=== PATIENT | female | born 1940 | race Caucasian/White ===

== ENCOUNTER → 2024-06-26 | Outpatient (CLI) | payer MEDICARE ==
[~2024-06-26] MED LIST: ATOR20 PO; Aspir 8181 MG PO; CLOB.05TC TOP; CLON.5 PO; CYCL10 PO; ERGO400 PO; HYDACE5; HYDACE5 PO; HYOS.125 SL; IBUP600 PO; LAVAP17G PO; METF500 PO; METO50 PO; Macrobid 100 M100 MG PO; NAPR500; Norco 5-325 Ta1 EACH PO; OXYACE5T PO; Pyridium100 MG PO; RANI150 PO; SULTRIDS PO; TRAM50 PO
[2024-06-26 11:58] LABS: BASOPHILS ABSOLUTE AUTO 0.03 K/mm3 (0.00-0.23); BASOPHILS PERCENT AUTO 0 % (0-2); EOSINOPHILS ABSOLUTE AUTO 0.05 K/mm3 (0.00-0.68); EOSINOPHILS PERCENT AUTO 1 % (0-6); Hematocrit 32.6 % (33.0-51.0); Hemoglobin 10.1 g/dL (11.5-16.0); IMMATURE GRAN PERCENT AUTO 1 % (0-1); LYMPHOCYTES ABSOLUTE AUTO 0.78 K/mm3 (0.84-5.20); LYMPHOCYTES PERCENT AUTO 8 % (21-46); MONOCYTES ABSOLUTE AUTO 0.67 K/mm3 (0.16-1.47); MONOCYTES PERCENT AUTO 7 % (4-13); Mean Corpuscular HGB 26.6 pg (26.0-34.0); Mean Corpuscular Volume 86 fL (80-100); Mean Platelet Volume 9.4 fL (9.1-12.4); NEUTROPHILS ABSOLUTE AUTO 7.84 K/mm3 (1.96-9.15); NEUTROPHILS PERCENT AUTO 83 % (41-73); Platelet Count 542 K/mm3 (150-400); RDW Coefficient Variation 18.4 % (11.7-14.2); RDW Standard Deviation 55.1 fL (35.1-46.3); White Blood Cell Count 9.47 K/mm3 (4.00-11.30)
[2024-06-26 12:19] LABS: Albumin, Blood 2.4 g/dL (3.4-5.0); Albumin/Globulin Ratio 0.5 (0.8-1.8); Bilirubin, Total 0.6 mg/dL (0.1-1.0); Bun/Creatinine Ratio 23.1 (12.0-20.0); Calcium, Blood 8.7 mg/dL (8.5-10.1); Creatinine, Blood 1.43 mg/dL (0.40-1.00); Globulin, Blood 4.7 g/dL (2.2-4.0); Potassium, Blood 5.6 mmol/L (3.5-5.5); Total Protein, Blood 7.1 g/dL (6.4-8.2)
== END | disposition home or self-care (01) ==
LOC: LAB SHORT 11:54 → LAB 11:54
PROVIDERS: Physician Assistant
DX: R10.9 Unspecified abdominal pain (principal)
CPT/HCPCS: 80053; 85025

== ENCOUNTER 2024-06-27 11:38 | Inpatient (IN) | payer MEDICARE ==
[~2024-06-27] VITALS: Ht 154.9 cm; Wt 60.0 kg
[~2024-06-27 11:38] MED LIST changes: -ATOR20 PO; -ERGO400 PO; -METF500 PO; -Norco 5-325 Ta1 EACH PO
[2024-06-27 13:20] LABS: Albumin, Blood 2.4 g/dL (3.4-5.0); Albumin/Globulin Ratio 0.6 (0.8-1.8); Bilirubin, Direct 0.4 mg/dL (0.0-0.3); Bilirubin, Indirect 0.3 mg/dL (0.1-0.7); Bilirubin, Total 0.7 mg/dL (0.1-1.0); Bun/Creatinine Ratio 28.8 (12.0-20.0); Calcium, Blood 8.5 mg/dL (8.5-10.1); Creatinine, Blood 1.18 mg/dL (0.40-1.00); Globulin, Blood 4.1 g/dL (2.2-4.0); Potassium, Blood 5.9 mmol/L (3.5-5.5); Total Protein, Blood 6.5 g/dL (6.4-8.2)
[2024-06-27] MEDS ORDERED: Ondansetron HCl 2 MG / ML 2ML Vial IV ONE (18:55)
[2024-06-27] MEDS ORDERED: Morphine Sulfate 4 MG/1 ML Injection IV ONE (18:55)
[2024-06-27] MEDS ORDERED: NS 1,000 ML IV SCH (19:20)
[2024-06-27 20:59] LABS: Bun/Creatinine Ratio 28.6 (12.0-20.0); Calcium, Blood 8.1 mg/dL (8.5-10.1); Creatinine, Blood 1.19 mg/dL (0.40-1.00); Potassium, Blood 5.7 mmol/L (3.5-5.5)
[2024-06-27] MEDS ORDERED: Sodium Zirconium Cyclosilicate 10 GM Packet PO ONE (21:35)
[2024-06-27 22:25] LABS: BASOPHILS ABSOLUTE AUTO 0.03 K/mm3 (0.00-0.23); BASOPHILS PERCENT AUTO 0 % (0-2); EOSINOPHILS ABSOLUTE AUTO 0.05 K/mm3 (0.00-0.68); EOSINOPHILS PERCENT AUTO 1 % (0-6); Hematocrit 28.1 % (33.0-51.0); Hemoglobin 8.6 g/dL (11.5-16.0); IMMATURE GRAN ABSOLUTE AUTO 0.13 K/mm3 (0.00-0.10); IMMATURE GRAN PERCENT AUTO 2 % (0-1); LYMPHOCYTES PERCENT AUTO 9 % (21-46); MONOCYTES ABSOLUTE AUTO 0.75 K/mm3 (0.16-1.47); MONOCYTES PERCENT AUTO 10 % (4-13); Mean Corpuscular HGB 27.3 pg (26.0-34.0); Mean Corpuscular HGB Conc 30.6 g/dL (31.5-36.5); Mean Corpuscular Volume 89 fL (80-100); Mean Platelet Volume 9.2 fL (9.1-12.4); NEUTROPHILS ABSOLUTE AUTO 6.23 K/mm3 (1.96-9.15); NEUTROPHILS PERCENT AUTO 79 % (41-73); NRBC ABSOLUTE 0.02 K/mm3 (0.00-0.02); NRBC Auto 0.3 /100 WBC (0.0-0.2); Platelet Count 423 K/mm3 (150-400); RDW Coefficient Variation 18.7 % (11.7-14.2); RDW Standard Deviation 58.4 fL (35.1-46.3); Red Blood Cell Count 3.15 M/mm3 (3.80-5.20); White Blood Cell Count 7.89 K/mm3 (4.00-11.30)
[2024-06-28] MEDS ORDERED: Ondansetron HCl 2 MG / ML 2ML Vial IV PRN (00:10)
[2024-06-28] MEDS ORDERED: NS 1,000 ML IV SCH ×2 (00:10→12:55)
[2024-06-28] MEDS ORDERED: FentaNYL Citrate 50 MCG/ML 2 ML Injection IV PRN (00:10)
[2024-06-28] MEDS ORDERED: FLU VACC TS2024-25(6MOS UP)/PF 45 MCG/0.5 ML SYRINGE IM SCH (00:10)
[2024-06-28] MEDS ORDERED: CALCIUM GLUC IN NACL, ISO-OSM 50 ML IV ONE (00:20)
[2024-06-28 02:21] LABS: International Normalized Ratio 1.07; Prothrombin Time Results 11.4 Sec (9.7-11.5)
[2024-06-28 06:35] LABS: BASOPHILS ABSOLUTE AUTO 0.02 K/mm3 (0.00-0.23); BASOPHILS PERCENT AUTO 0 % (0-2); EOSINOPHILS ABSOLUTE AUTO 0.07 K/mm3 (0.00-0.68); EOSINOPHILS PERCENT AUTO 1 % (0-6); Hematocrit 27.3 % (33.0-51.0); Hemoglobin 8.4 g/dL (11.5-16.0); IMMATURE GRAN ABSOLUTE AUTO 0.14 K/mm3 (0.00-0.10); IMMATURE GRAN PERCENT AUTO 2 % (0-1); LYMPHOCYTES PERCENT AUTO 9 % (21-46); MONOCYTES ABSOLUTE AUTO 0.75 K/mm3 (0.16-1.47); MONOCYTES PERCENT AUTO 9 % (4-13); Mean Corpuscular HGB 27.5 pg (26.0-34.0); Mean Corpuscular HGB Conc 30.8 g/dL (31.5-36.5); Mean Corpuscular Volume 89 fL (80-100); Mean Platelet Volume 9.8 fL (9.1-12.4); NEUTROPHILS ABSOLUTE AUTO 6.55 K/mm3 (1.96-9.15); NEUTROPHILS PERCENT AUTO 80 % (41-73); Platelet Count 422 K/mm3 (150-400); RDW Coefficient Variation 18.7 % (11.7-14.2); RDW Standard Deviation 59.9 fL (35.1-46.3); Red Blood Cell Count 3.06 M/mm3 (3.80-5.20); White Blood Cell Count 8.23 K/mm3 (4.00-11.30)
[2024-06-28 08:31] LABS: Albumin, Blood 2.1 g/dL (3.4-5.0); Albumin/Globulin Ratio 0.5 (0.8-1.8); Bilirubin, Total 0.7 mg/dL (0.1-1.0); Bun/Creatinine Ratio 26.2 (12.0-20.0); Calcium, Blood 8.2 mg/dL (8.5-10.1); Creatinine, Blood 1.07 mg/dL (0.40-1.00); Globulin, Blood 3.9 g/dL (2.2-4.0); Potassium, Blood 5.8 mmol/L (3.5-5.5)
[2024-06-28] MEDS ORDERED: Metoprolol Tartrate 25 MG Tab PO SCH (09:00)
--- NOTE | 2024-06-28 10:46 | NUR ---
CHART REVIEW FOR ANTICIPATED ASSUMPTION OF CARE.
--- NOTE | 2024-06-28 11:55 | NUR ---
MEDS: METOPROLOL BID METFORMIN BID VIT D QAM CLONAZEPAM QHS ATORVASTATIN QHS
--- NOTE | 2024-06-28 12:46 | NUR ---
PT WITH C/O SOB. TELE READING SINUS @ 93 c PVCs. PATIENT VERY ANXIOUS AND MOANING. CALL TO DR HARPER: OKAY TO EAT AND WILL WORK ON OBTAINING MEDICAL Hx.
[2024-06-28] MEDS ORDERED: ClonazePAM 0.5 MG Tab PO PRN (12:55)
[2024-06-28] MEDS ORDERED: Sodium Zirconium Cyclosilicate 10 GM Packet PO ONE ×2 (13:00→15:40)
[2024-06-28 14:55] LABS: Hematocrit 31.3 % (33.0-51.0); Hemoglobin 9.7 g/dL (11.5-16.0)
[2024-06-28 15:02] LABS: Source, Urine Clean Catch
[2024-06-28 15:18] LABS: Appearance, Urine Hazy (Clear); Bilirubin, Urine Neg (Neg); Blood, Urine Neg (Neg); Color, Urine Yellow (P-Yellow); Glucose Qualitative, Urine Neg (Neg); Ketones, Urine 2+ (Neg); Leukocyte Esterase, Urine Neg (Neg); Nitrite, Urine Neg (Neg); Protein, Urine 2+ (Neg); Specific Gravity, Urine 1.025 (1.003-1.022); Urobilinogen, Urine 1+ (Normal)
--- NOTE | 2024-06-28 15:38 | NUR ---
LOKELMA NOT ADMINISTERED PATIENT WAS NPO AT THE TIME. REORDERING TO BE ABLE TO PULL FROM [facility].
[2024-06-28 15:39] LABS: Amorphous Mod (0-Heavy); Bacteria Mod /hpf; Mucus Light (0-Heavy); Red Blood Cells, Urine 0-2 /hpf (0-2); Squamous Epithelial Cells Rare /hpf (Few); White Blood Cells, Urine 0-2 /hpf (0-5)
[2024-06-28 15:40] LABS: Transitional Epithelial Cells Rare /hpf (0-Rare); Uric Acid Crystals Rare /hpf
[2024-06-28 15:44] VITALS: BP 144/72
[2024-06-28] MEDS ORDERED: Norco 5-325 Ta1 EACH PO (17:22)
[2024-06-28] MEDS ORDERED: ATOR20 PO (17:27)
[2024-06-28] MEDS ORDERED: ERGO400 PO (17:32)
[2024-06-28] MEDS ORDERED: METF500 PO (17:32)
[2024-06-28 19:32] VITALS: BP 131/78
--- NOTE | 2024-06-28 19:39 | NUR ---
END OF SHIFT SUMMARY: A&Ox3-4. PLEASANT AND COOPERATIVE WITH CARE. CALLS APPROPRIATELY AND IS ABLE TO ADVOCATE NEEDS EFFECTIVELY. INCONTINENT OF BLADDER SECONDARY TO URGE INCONTINENCE.BEDREST TODAY. MEDS WHOLE WITH FLUIDS. NS @ 75mL/hr. C/O PAIN AND DISCOMFORT AND HAS BEEN SEEMINGLY DISTRESSED ALL DAY, EVIDENCED BY MOANING AND GROANING AND STATING, "I FEEL AWFUL". MEDICATED PRN FENTANYL. HAS TAKEN NORCO AT HOME BUT RAN OUT. RECENTLY MOVED TO [place] WITH DAUGHTER. 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 IN PROCESS OF GETTING ESTABLISHED WITH LOCAL PCP AND SWITCHING OVER INSURANCE. BED IN LOWEST POSITION. CALL LIGHT WITHIN REACH. ALL NEEDS MET. REPORT TO ONCOMING NURSE.
[2024-06-28 22:25] LABS: Hematocrit 28.2 % (33.0-51.0); Hemoglobin 8.9 g/dL (11.5-16.0)
[2024-06-29 04:02] VITALS: BP 156/87
--- NOTE | 2024-06-29 04:06 | NUR ---
SHIFT SUMMARY PT ALERT ORIENTED WITH INTERMITTENT CONFUSION. CALLS APPROPRIATELY. HER ABD IS VERY DISTENDED AND TENDER TO TOUCH. SHES VERY UPSET STATING THAT SHES SCARED BECAUSE OF THE Cancer. she has a oncology consult ordered. INC OF BLADDER USES A PUREWICK URINATING MARISSA URINE. C/O ABD AND BACK PAIN MEDICATED WITH FENTANYL WITH GOOD RELIEF. SHE WAS GIVEN A KLONOPIN TO HELP WITH HER ANXIETY. REMAINS ON TELEMETRY AT SINUS TACH WITH A RATE OF 106. ALL OTHER VS ARE STABLE. SHE REMAINS ON 2 L OF O2 VIA NC SATTING AT 96%. SHE KEEPS STATING THAT SHE FEELS LIKE SHE CANT BREATHE. SHES KEPT TURNED AND REPOSITIONED Q2HR. RESTING IN BED AT THIS TIME
[2024-06-29 06:38] LABS: Anion Gap 13 mmol/L (3-11); Blood Urea Nitrogen 23 mg/dL (8-24); Bun/Creatinine Ratio 24.5 (12.0-20.0); CO2, Blood 19 mmol/L (21-32); Chloride, Blood 112 mmol/L (98-108); Creatinine, Blood 0.94 mg/dL (0.40-1.00); Glomerular Filtration Rate 61 (60-); Glucose, Blood 139 mg/dL (70-99); Magnesium, Blood 1.7 mg/dL (1.6-2.4); Phosphorus, Blood 2.8 mg/dL (2.5-4.9); Potassium, Blood 5.1 mmol/L (3.5-5.5); Sodium, Blood 139 mmol/L (136-145)
[2024-06-29 06:48] LABS: Hematocrit 28.3 % (33.0-51.0); Hemoglobin 8.7 g/dL (11.5-16.0); Mean Corpuscular HGB 27.2 pg (26.0-34.0); Mean Corpuscular HGB Conc 30.7 g/dL (31.5-36.5); Mean Corpuscular Volume 88 fL (80-100); Mean Platelet Volume 9.4 fL (9.1-12.4); Platelet Count 411 K/mm3 (150-400); RDW Coefficient Variation 18.8 % (11.7-14.2); RDW Standard Deviation 58.3 fL (35.1-46.3); White Blood Cell Count 7.25 K/mm3 (4.00-11.30)
--- NOTE | 2024-06-29 07:37 | NUR ---
DR. CORONADO, ONCOLOGY, TO BEDSIDE TO DISCUSS PATIENT'S CONDITION AND PROGNOSIS. PATIENT VERY DISTRAUGHT AND CRYING, STATING SHE IS SCARED AND IS WORRIED ABOUT HER DAUGHTERS AND FAMILY. DR. CORONADO WILL CALL PATIENT'S DAUGHTER, RANGEL.
[2024-06-29 07:53] VITALS: BP 161/77
--- NOTE | 2024-06-29 08:27 | NUR ---
PATIENT PAIN NOT CURRENTLY MANAGED AND DID NOT SEEM TO BE MANAGED THROUGHOUT THE NIGHT REPORTED TO HAVE ELEVATED HR AND BP WELL "CRYING AND MOANING" THROUGHOUT THE NIGHT. LAST DOSE FENTANYL 50mcg @ 0620; PAIN CURRENTLY 10/10 IN ABD AND THROAT; CALL TO DR. HARPER TO ASK FOR ADDITIONAL PAIN MANAGEMENT ORDERS.
[2024-06-29] MEDS ORDERED: Promethazine HCl 25 MG Tab PO PRN (08:35)
[2024-06-29] MEDS ORDERED: LORazepam 1 MG Tab PO PRN (08:35)
[2024-06-29] MEDS ORDERED: Morphine Sulfate 20 MG/1ML 1 ML Oral Syringe SL PRN (08:35)
--- NOTE | 2024-06-29 14:18 | NUR ---
ORDER REQUEST PLACED FOR COMFORT CARE CART.
--- NOTE | 2024-06-29 17:45 | NUR ---
MET WITH FAMILY AND TOUCHED BASE WITH STEPHEN. PROVIDED WATER TO STEPHEN. SHE REPORTED THAT IT IS DIFFICULT TO SWALLOW. TWO FAMILY MEMBERS WERE AT BEDSIDE AT THIS TIME. THEY ASKED IF THE PROVIDER HAD MADE ROUNDS ALREADY. I EXPRESSED THAT HE HAD ROUNDED ALREADY AND HAD SPOKEN TO A FAMILY MEMBER EARLIER. THEY SAID THEY KNEW WHO HE HAD SPOKEN WITH AND WOULD CHECK WITH HER FOR AN UPDATE. PC WILL CONTINUE TO FOLLOW
--- NOTE | 2024-06-29 18:27 | NUR ---
END OF SHIFT SUMMARY: A&Ox3-4. PLEASANT AND COOPERATIVE WITH CARE TOLERATED. CALLS APPROPRIATELY AND IS ABLE TO ADVOCATE NEEDS EFFECTIVELY. BEDBOUND. NO BOWEL MOVEMENT SINCE ADMIT. VERY LITTLE URINE OUTPUT. MEDS WHOLE WITH FLUIDS. TELE DC'd TODAY. PAIN IMPROVED WITH ADDITION OF COMFORT MEDS. DR. CORONADO TO BEDSIDE AND HAD CONVERSATOIN WITH PATIENT REGARDING HER MORBIDITY. VERY DISTRAUGHT FOLLOWING THIS NEWS. MANY FAMILY MEMBERS AND FRIENDS TO BEDSIDE. PATIENT IN BETTER SPIRITS AFTER FAMILY VISIT. COMFORT SIGNIFICANTLY IMPROVED WITH ADDITION OF LORAZEPAM AND ROXANOL. PALLIATIVE CARE TO BEDSIDE TO DISCUSS LOGISTICS OF HER SITUATION. BED IN LOWEST POSITION. CALL LIGHT WITHIN REACH. ALL NEEDS MET. REPORT TO ONCOMING NURSE.
--- NOTE | 2024-06-30 05:10 | NUR ---
ADMITTED 06/28/24: COMFORT CARES, STOMACH CA WITH METS TO LIVER. AAOX3-4. PT IS ON BEDREST. IV SL IN LAC. CAN ADMIN 5-10MG MORPHINE Q1. FAMILY IN ROOM OVERNIGHT AND INVOLVED IN CARE.
[2024-06-30 09:00] VITALS: BP 171/78
--- NOTE | 2024-06-30 11:07 | NUR ---
Met with daughter Maeve and patient at bedside. Daughter Maeve states she and other family members can take the patient home with hospice support, and the patient is agreeable to this as well. Shared this information with JEIMY.
--- NOTE | 2024-06-30 21:04 | NUR ---
END OF SHIFT SUMMARY: ROUSES TO VERBAL AND PAINFUL STIMULI; ALERT AT OTHER TIMES. PLEASANT AND COOPERATIVE WITH CARE. FAMILY CALLS APPROPRIATELY AND IS ABLE TO ADVOCATE NEEDS EFFECTIVELY. BEDREST; NO AMBULATION. FAMILY AT BEDSIDE ALL DAY. INCONTINENT OF BOWEL. NO PO INTAKE OF FOODS; SMALL AMOUNT OF FLUID INTAKE. MEDICATED PRN PAIN x2. FAMILY EDUCATED ON S/SX PAIN. REPOSITIONING Q2H PROVIDED AND EDUCATED FAMILY. SURGICAL CONSULT PLACED FOR PLEURIX DRAIN. BED IN LOWEST POSITION. CALL LIGHT WITHIN REACH. ALL NEEDS MET. REPORT TO ONCOMING NURSE.
--- NOTE | 2024-07-01 05:58 | NUR ---
NOC SUMMARY- PT REPOSITIONED TOLERATED. PT BRIEF CHANGED NEEDED. ORAL CARE PROVIDED. PT PAIN MANAGED WELL PER OCT. PT FAMILY STAYED THE NIGHT. NO NEW ISSUES. CALL LIGHT IN REACH.
--- NOTE | 2024-07-01 15:39 | NUR ---
Spiritual care visit conducted. Patient is lying in bed and resting. Patient's dtr's Maeve and Rocío are bedside. I talk with the dtr's about Medical POA, financial POA and how Hospice might work for their mother if she would go to a facility. We discussed the family dynamics, the finacial pressures and the what the patient's wishes are. We also discuss the importance having peace in the patient's room as the family work the details out. I sat with the patient while the dtr's stepped outside and patient talks about the love she has for the family and she welcomes a prayer being said for her. She is comforted by the prayer and slips back to her restful state shortly after the prayers conclusion. I will continue to remian available to patient and family.
--- NOTE | 2024-07-01 16:19 | NUR ---
Spoke to pt's daughter Renee regarding her concerns about taking the patient into her home. 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 She also states having genuine concerns regarding her sister's new sobriety, specifically related to being around hospice medications so freely. We discussed a possibility of [facility] in [place] who agreed to evaluate the patient in the morning, and may be willing to take the patient for a short term contract as the patient is terminal. Renee states this may be financially possible, as the patient does have some savings. Will follow up tomorrow, CM aware.
--- NOTE | 2024-07-01 17:35 | NUR ---
REPORT RECEIVED VERIFIED, PT SLEEPING MOST THE DAY SHOWS NO DISTRESS. PT HAS BEEN TURNED EVERY TWO HOURS, PT IS EXPRESSING PAIN WHEN SHE IS TURNED BUT REFUSING MEDICATION. I EDUCATED PT ABOUT MANAGING MAYBE WITH SMALLER AMOUNTS OF MEDS BUT STILL PT REFUSED, SINCE PT ON COMFORT CARE I ENC THE PT AND FAMILY TO CALL ME IF ANYTHING CHANGES. FAMILY IN PROCESS OF FINDING HELP WITH LEGAL PAPERWORK, CASE [employer] WAS NOTIFIED AND PROPER PATHS TAKEN. SURGEON IN TO SEE PT AND SPOKE WITH FAMILY, FAMILY INFORMED ME THAT SURGEON WILL HOLD ON THE PLUREX DRAIN FOR A DAY OR SO IN ORDER TO ULTRASOUND ABD AND BETTER PLACE DRAIN.
--- NOTE | 2024-07-02 04:51 | NUR ---
NOC SUMMARY- PT HAD SOME EPISODES OF DISCOMFORT REQUIRING FREQUENT MEDICATION. PT AT TIMES REFUSES PAIN MEDS DESPITE BEING PAINFUL. PT REPOSITIONED AND BRIEF CHANGED NEEDED. PT FAMILY STAYED THE NIGHT. PT HAS BEEN ABLE TO REST QUIETLY THIS AM. CALL LIGHT IN REACH.
[2024-07-02] MEDS ORDERED: Morphine Sulfate 20 MG/1ML 1 ML Oral Syringe SL PRN (15:20)
--- NOTE | 2024-07-02 15:59 | NUR ---
INTRODUCED [facility] FROM [facility] TO FAMILY. THEY HAD FOLLOW UP QUESTIONS ABOUT INSURANCE. CHECKED WITH [employer] TO CHECK PROGRESS. PROVIDER WAS GOING TO DISCUSS PLUREX PLACMENT WITH SURGEON. FESTUS SYED RN CALLED FAMILY TO CONTINUE DISCHARGE DISCUSSION.
--- NOTE | 2024-07-02 19:30 | NUR ---
END OF SHIFT SUMMARY: A&Ox1-2. SLEEPING MOST OF SHIFT; GRIMACES AND MOANS OUT LOUD TO REPOSITION OR CLEAN. C/O DYSPHAGIA WITH PAIN MEDICATION; NO OTHER PO INTAKE. REFUSING MEALS AND MOST FLUID INTAKE. FAMILY AT BEDSIDE MOST OF DAY. FAMILY CALLS TO ADVOCATE PATIENT NEEDS. DAUGHTERS ARE CONCERNED ABOUT HER BECOMING DEHYDRATED SHE CAN BE SEEN LICKING HER LIPS. EDUCATED ON PURPOSE OF COMFORT MEASURES AND PROVIDED WITH ORAL SWABS. THEY VOICED UNDERSTANDING AND DECLINED IV FLUIDS. BEDREST SECONDARY TO PAIN AND WEAKNESS. INCONTINENT OF BOWEL AND BLADDER WITH LOG-ROLL FOR PERSONAL CARE. LBM THIS MORNING. BED IN LOWEST POSITION. CALL LIGHT WITHIN REACH. ALL NEEDS MET. REPORT TO ONCOMING NURSE.
--- NOTE | 2024-07-03 10:39 | NUR ---
ORDER FOR US-GUIDED PARACENTESIS TO RELIEVE ASCITES. IMAGING WILL BE UP TO EVALUATE FLUID @ BEDSIDE. VERBAL ORDER FROM DR. LENTZ TO YONI METOPROLOL PATIENT IS NO LONGER TAKING ANYTHING PO.
--- NOTE | 2024-07-03 10:58 | NUR ---
US TO BEDSIDE TO ASSESS FLUID LEVEL.
--- NOTE | 2024-07-03 15:06 | NUR ---
Spiritual care visit conducted. Patient is out of the room for a procedure and patient's dtr, Maeve is bedside. We talk about options for placement for the patient to D/C on hospice. Maeve talks about possible hotel and AirBnB possibilites. According to the dtr, the patient continues to decline, and she feels the pressure to try to come up with a plan. We also discuss the family unit complications and the grief and loss they have endured. I offer support, encouragement, insights and a calming presence. Maeve responded well and showed signs of reduced stress.
--- NOTE | 2024-07-03 15:23 | NUR ---
PATIENT TO IR AND BACK. 3L FLUID REMOVED FROM ABD VIA PARACENTESIS.
--- NOTE | 2024-07-03 16:04 | NUR ---
Checked in with Maeve at the bedside multiple times today. She has continued to state she will be working with her sister to get pt's savings to pay for [facility] Foster [facility]. Continue to also assist with symptom management, Pt has now developed noisy, moist breathing. She is unresponsive, and we will likely pass here in the hospital given how much her symptoms have changed to actively dying.
[2024-07-03] MEDS ORDERED: LORazepam 1 MG Tab PO PRN (16:20)
[2024-07-03] MEDS ORDERED: Atropine Sulfate 1% Opth Soln 2ML BTL SL PRN (16:20)
[2024-07-03] MEDS ORDERED: Scopolamine Hydrobromide Patch TOP PRN (16:20)
--- NOTE | 2024-07-03 18:31 | NUR ---
END OF SHIFT SUMMARY: A&Ox1-2. NONRESPONSIVE MOST OF SHIFT; GRIMACES AND MOANS OUT LOUD TO REPOSITION OR CLEAN. CLAMPS MOUTH WHEN MEDS GIVEN. FAM EDUCATED ON BUCCAL AND SL ADMINISTRATION. ORAL CARE PROVIDED. Q2H TURN. ADVOCATE PATIENT NEEDS. PARACENTESIS COMPLETED TODAY DRAINING 3L; SMALL 1/4cm INCISION RLQ ABD WITH BANDAID COVERING. MEDICATING PRN PAIN MORE FREQUENTLY. FAMILY WORKING ON PLACEMENT BUT PATIENT TRANSITIONING. ORDER OBTAINED FOR ATROPINE DROPS AND SCOPALAMINE PATCH. SUCTION AND ORAL CARE COMPLETED TO PT TOLERENCE. FAMILY PROVIDED EDUCATION ON TRANSITION PROCESS. BED IN LOWEST POSITION. CALL LIGHT WITHIN REACH. ALL NEEDS MET. REPORT TO ONCOMING NURSE.
--- NOTE | 2024-07-03 19:08 | NUR ---
PATIENT [id number]. CONFIRMATION BY MARISSA DA SILVA RN.
== END 2024-07-03 19:04 | DRG 375 ==
LOC: ER 11:38 → ERHOLD 11:39 → MEDS 06-28 11:43
PROVIDERS: Internal Medicine; Physician Assistant; Student in an Organized Health Care Education/Training Program; ADMIT Internal Medicine
PROC: 0W9G3ZZ Drainage of Peritoneal Cavity, Percutaneous Approach (ICD-10-PCS; principal; 2024-07-03)
DX: C78.6 Secondary malignant neoplasm of retroperitoneum and peritoneum (principal); C16.9 Malignant neoplasm of stomach, unspecified; C78.7 Secondary malignant neoplasm of liver and intrahepatic bile duct; J91.0 Malignant pleural effusion; R18.0 Malignant ascites; N17.9 Acute kidney failure, unspecified; E87.20 Acidosis, unspecified; N39.0 Urinary tract infection, site not specified; C56.9 Malignant neoplasm of unspecified ovary; Z51.5 Encounter for palliative care; Z66 Do not resuscitate; F41.8 Other specified anxiety disorders; E87.5 Hyperkalemia; D63.0 Anemia in neoplastic disease; L90.0 Lichen sclerosus et atrophicus; K72.90 Hepatic failure, unspecified without coma; R00.2 Palpitations; I10 Essential (primary) hypertension; Z88.5 Allergy status to narcotic agent; Z79.82 Long term (current) use of aspirin; Z79.899 Other long term (current) drug therapy; Z88.8 Allergy status to other drugs, medicaments and biological substances; Z98.1 Arthrodesis status
CPT/HCPCS: 36415; 49083; 71046; 71260; 74176; 80048; 80053; 80069; 80076; 81001; 83735; 83880; 84132; 84484; 85014; 85018; 85025; 85027; 85379; 85610; 85730; 87086; 93005; 93010; 96361; 96374; 96375; 99285-25; A9270; G0378; J0612; J2270; J2405; J3010; J7030; Q9967